=== PATIENT | male | born 1995 | race Caucasian/White ===

== ENCOUNTER → 2020-04-04 | Outpatient (CLI) | payer BC, SELFPAY ==
[2020-04-04 10:37] VITALS: BMI 33.3
== END | disposition home or self-care (01) ==
LOC: LABSPEC 12:54
PROVIDERS: Referring Provider Physician Assistant Surgical; Visit Provider Physician Assistant Surgical
DX: Z02.0 Encounter for examination for admission to educational institution (principal)
CPT/HCPCS: 87635; U0005; U0003